=== PATIENT | male | born 1980 | race Caucasian/White ===

== ENCOUNTER 2022-02-21 08:33 | Emergency (ER) | payer BC, SELFPAY ==
--- NOTE | ~2022-02-21 | XR_ITS ---
EXAMINATION: XR hip LT 2V w AP pelvis DATE: 02/21/2022 09:18 INDICATION: Pelvis injury. TECHNIQUE: An anteroposterior view of the pelvis and 2 views of left hip were obtained. COMPARISON: None. FINDINGS: Bone alignment is normal. No fracture. There is mild right hip osteoarthritis and severe le ft hip osteoarthritis. IMPRESSION: 1. Mild right hip osteoarthritis and severe left hip osteoarthritis. Reviewed, dictated and finalized at location A.
--- NOTE | ~2022-02-21 | XR_ITS ---
EXAMINATION: XR toe 4th RT min 2V DATE: 02/21/2022 09:19 INDICATION: Right fourth toe swelling. Injury. TECHNIQUE: 4 views of right fourth toe were obtained. COMPARISON: None. FINDINGS: There is ankylosis of fourth middle and distal phalanges. There is a transverse fracture of the fusion mass. The distal fracture fragment demonstrates 2 mm plantar displacement. Joint spaces a re normal. IMPRESSION: 1. 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 Reviewed, dictated and finalized at location A.
[2022-02-21 08:37] VITALS: PULSE 98; RESP 18; TEMP 36.9; O2SAT 99
[2022-02-21] MEDS: ACETAMINOPHEN 500 MG TABLET 1000 MG PO (08:55)
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
[2022-02-21 09:54] VITALS: BP 143/91; PULSE 70; RESP 18; O2SAT 99
== END 2022-02-21 10:10 | disposition home or self-care (01) ==
PROVIDERS: Emergency Provider General Practice; PCP Internal Medicine
DX: S92.531A Displaced fracture of distal phalanx of right lesser toe(s), initial encounter for closed fracture (principal); M16.0 Bilateral primary osteoarthritis of hip; M24.674 Ankylosis, right foot; W22.8XXA Striking against or struck by other objects, initial encounter
CPT/HCPCS: 73502; 73660; 99284; A9270